=== PATIENT | male | born 1965 | race Caucasian/White ===

== ENCOUNTER 2022-05-06 02:45 | Emergency (ER) | payer BC ==
[2022-05-06] MEDS ORDERED: Lidocaine 1% with EPINEPHrine 1:100,000 20 ML MDV INJECT ONE (03:00)
[2022-05-06] MEDS ORDERED: Lidocaine 1% 20 ML MDV INJECT ONE (03:04)
[2022-05-06 03:07] VITALS: BP 142/95; PULSE 90
[2022-05-06] MEDS ORDERED: Lidocaine 2% with EPINEPHrine 1:200,000 20 ML SDV INJECT ONE (03:08)
[2022-05-06] MEDS ORDERED: Lidocaine 2% with EPINEPHrine 1:200,000 20 ML SDV ONE (03:08)
[2022-05-06] MEDS ORDERED: Diphtheria,Pertussis(Acell),Tetanus Vaccine 0.5 ML Syringe ONE (03:50)
[2022-05-06 03:53] LABS: ANION GAP 11.9 mEq/L (7-13); CHLORIDE,CL 102 mmol/L (98-107); SODIUM,NA 139 mmol/L (136-145)
[2022-05-06 03:54] LABS: ESTIMATED GFR 71 mL/min (>=60)
== END 2022-05-06 04:23 | disposition home or self-care (01) ==
LOC: DL.ED 02:45
DX: S01.111A Laceration without foreign body of right eyelid and periocular area, initial encounter (principal); Z23 Encounter for immunization; W18.09XA Striking against other object with subsequent fall, initial encounter; Y92.002 Bathroom of unspecified non-institutional (private) residence as the place of occurrence of the external cause
CPT/HCPCS: 12013; 36415; 80053; 80307; 83880; 84484; 85025; 90471; 90715; 93005; 99283-25